=== PATIENT | male | born 1945 | race Caucasian/White ===

== ENCOUNTER 2017-02-07 12:04 | Inpatient (IN) | payer OTHER ==
[2017-02-06 16:30] VITALS: BMI 22.0
[2017-02-07 13:40] LABS: INR 1.45 (0.82-1.09); PROTHROMBIN TIME (PATIENT) 16.1 SEC (10.2-13.0)
[2017-02-07] MEDS ORDERED: MIDAZOLAM HCL 2 MG/2 ML SINGLE DOSE VIAL ONE (13:55)
[2017-02-07] MEDS ORDERED: LIDOCAINE HCL 1%, 10 MG/ML (20ML VIAL) ONE (14:16)
[2017-02-07] MEDS ORDERED: BUPIVACAINE HCL/PF 0.5% (5MG/ML) 10 ML VIAL ONE (14:16)
[2017-02-07] MEDS ORDERED: BUPIVACAINE HCL/PF 0.5% (5MG/ML) 10 ML VIAL IJ ONE (14:34)
[2017-02-07] MEDS ORDERED: LIDOCAINE HCL 1%, 10 MG/ML (50 mL VIAL) IJ ONE (14:34)
[2017-02-07] MEDS ORDERED: ONDANSETRON 4 MG/2 ML VIAL IVPUSH PRN ×2 (15:18→15:55)
[2017-02-07] MEDS ORDERED: ALBUTEROL SO4 6.7 GM HFA INHALER IH PRN (15:49)
[2017-02-07] MEDS ORDERED: HYDROmorphone HCL CARPU-JECT 1 MG/1 ML DISP.SYRIN IVPB PRN (15:52)
[2017-02-07] MEDS ORDERED: NITROGLYCERIN SUBLINGUAL 1/150 0.4 MG TAB SL PRN (16:00)
[2017-02-07] MEDS ORDERED: ONDANSETRON 4 MG/2 ML VIAL IVPB PRN (16:03)
--- NOTE | 2017-02-07 16:06 | HP ---
History & Physical Update - History History: No Change - Physical Physical: No Change - Assessment Assessment: No Change - Plan Plan: No Change
--- NOTE | 2017-02-07 16:43 | OP ---
DATE OF OPERATION: 02/07/2017 PREOPERATIVE DIAGNOSIS: Infected left femoropopliteal bypass graft. POSTOPERATIVE DIAGNOSIS: Infected left femoropopliteal bypass graft. OPERATIVE PROCEDURE: Excision of the femoropopliteal bypass graft and repair of the graft at the anastomosis. SURGEON: Emely Eid MD HAND PASTER: Ashwini ANESTHESIA: Local sedation. INDICATION FOR PROCEDURE: Patient has had a few vascular procedures done. One of them included a femoropopliteal bypass to below the knee, which had not been functioning. Now, patient has a functioning femoral distal reverse saphenous vein bypass and recently developed cellulitis of the left leg, left thigh, and had a pustule in the left groin. So, even with antibiotics, it was not responding; so, the patient was brought to the operating room. DESCRIPTION OF PROCEDURE: The patient's left leg was prepped and draped and intravenous vancomycin was given and local with Marcaine was injected in the left groin right over the pustule, and incision was taken down to the subcutaneous and deep tissue. The graft was isolated. Obviously, it was infected with slimy material around the graft. It was dissected all the way to the anastomosis, and a small sleeve of graft was left behind and sutured with 5-0 Prolene proximally. Then, the second incision was made at the knee level, and obviously, the graft was not incorporated into the tissue and easily came out. The whole graft was excised, and below the knee, the graft was again tied off with 5-0 Prolene. After irrigating the wound, the subcutaneous tissue and skin were closed, and the wound was packed with Iodoform gauze. The patient went to the recovery room in stable condition. Carson [id number]
[2017-02-07] MEDS: SODIUM CHLORIDE 1,000 ML IV SCH (17:26)
[2017-02-07] MEDS: LACTATED RINGERS SOLUTION 1,000 ML IV SCH (17:26)
[2017-02-07] MEDS: WARFARIN NA 7.5 MG TABLET (FP) PO SCH (17:27)
[2017-02-07] MEDS: ATORVASTATIN CA 40 MG TABLET (FP) PO SCH (21:42)
[2017-02-07] MEDS: ASPIRIN COATED 81 MG TABLET.EC PO SCH (21:42)
[2017-02-07] MEDS: ACLIDINIUM BROMIDE 400 MCG/INH AERO.POWD IH SCH (21:43)
[2017-02-07] MEDS: oxyCODONE HCL 5 MG TABLET PO PRN (21:47)
[2017-02-07] MEDS ORDERED: VANCOMYCIN 1,000 MG in DEXTROSE 5%-WATER - 250 ML IVPB SCH (22:00)
[2017-02-07] MEDS ORDERED: VANCOMYCIN 1 GRAM (PRE-DOCKED) 1,000 MG/250 ML BAG IVPB ONE (22:00)
[2017-02-08 08:12] LABS: MEAN CELL VOLUME 90.7 fl (80-96); MEAN PLT VOLUME 8.1 fl (7.5-11.1); PLATELET COUNT 304 K/MM3 (134-434); WHITE BLOOD COUNT 14.8 K/mm3 (4.0-10.8)
--- NOTE | 2017-02-08 08:22 | OP ---
Operative Note - Note: Operative Date: 02/07/17 Pre-Operative Diagnosis: Infected left leg femoral-popliteal bypass Operation: Excision of left leg infected fem-pop bypass Post-Operative Diagnosis: Same as Pre-op Surgeon: Emely Eid Spinneret Person: Ashwini Babin Anesthesia: MAC Specimens Removed: bypass graft Estimated Blood Loss (mls): 30 Drains & Tubes with Location: none Operative Report Dictated: Yes
[2017-02-08 08:23] LABS: INR 1.37 (0.82-1.09); PROTHROMBIN TIME (PATIENT) 15.2 SEC (10.2-13.0)
[2017-02-08 08:29] LABS: ANION GAP 5 (8-16); CALCIUM 8.8 mg/dl (8.4-10.2); CO2 30 mmol/L (22-28); CREATININE 0.8 mg/dl (0.6-1.3); GLUCOSE,RANDOM 102 mg/dl (74-106)
[2017-02-08] MEDS ORDERED: PT OWN MED DRAWER 7, Y5N ONE ×2 (09:51→22:00)
--- NOTE | 2017-02-08 10:08 | PN ---
Progress Note (short form) - Note Progress Note: S: Pt. without complaints. Ambulating with walker O: VAS 3/10 A/P: POD #1 s/p excision of left fem/pop graft 1. continue pain meds as ordered
[2017-02-08] MEDS: ACLIDINIUM BROMIDE 400 MCG/INH AERO.POWD IH SCH ×2 (10:11→22:02)
[2017-02-08] MEDS: ACETAMINOPHEN 325 MG TABLET (FP) PO PRN (10:12)
--- NOTE | 2017-02-08 10:34 | PN ---
Progress Note (short form) - Note Progress Note: ID Consult dictated POD #1 excision, infected L LE vascular graft Possible sepsis secondary to graft infection Pending c/s empiric vancomycin / zosyn
[2017-02-08] MEDS: VANCOMYCIN 1 GRAM (PRE-DOCKED) 250 ML IVPB SCH ×2 (10:53→23:08)
[2017-02-08] MEDS: PIPERACILLIN/TAZOB 3.375 GM 50 ML IVPB SCH ×2 (10:53→18:03)
--- NOTE | 2017-02-08 11:02 | CONS ---
DATE OF CONSULTATION: HISTORY: The patient is a 71-year-old male evaluated for infected left femoropopliteal bypass graft. The patient has a long history of peripheral vascular disease. He has had numbers bypass procedures on his left lower extremity dating back 8 years. In December of this year, he developed acute onset of left knee pain and swelling. He was hospitalized at [facility] for cellulitis of the left lower extremity. He was treated with course of IV antibiotics and was discharged home. He reports that he developed persistent oozing from a left groin wound for which he received 3 or 4 weeks of oral antibiotic therapy. Despite the oral antibiotics, he continued to have drainage and swelling. He was admitted to [facility] on February 07, 2017 where excision of an infected left femoral popliteal graft was performed. At the present time, he is awake and alert. He has no complaints of pain. He denies any fever or chills. The patient states he had been doing well since his last vascular surgery. He had undergone a revision, which was complicated postoperatively by infection at the site. I contacted [place] [facility], and they report wound cultures obtained in December were negative. PAST MEDICAL HISTORY: Positive for coronary artery disease, atrial fibrillation, sick sinus syndrome, peripheral vascular disease, hypercoagulable state, recurrent DVTs, hyperlipidemia, COPD. PAST SURGICAL HISTORY: Status post permanent pacemaker, left lower extremity vascular surgeries, appendectomy, pilonidal cyst excision. ALLERGIES: No known allergies. MEDICATIONS: Coumadin, Spiriva, Cardia, Lipitor. SOCIAL HISTORY: Former smoker. SYSTEMS REVIEW: Neurologic: No loss of consciousness, seizure activity, focal weakness. Cardiac: Negative chest pain or palpitations. Respiratory: Positive for COPD. Gastrointestinal: Negative vomiting or diarrhea. Genitourinary: Negative for urinary tract infection. LABORATORY DATA: White count 14.8, hematocrit 43.4, platelet count 304, BUN 12, creatinine 0.8. PHYSICAL EXAMINATION: General: He is awake and alert. He is not acutely toxic appearing. Vital Signs: Temperature 99.6, blood pressure 121/53, pulse 88, irregular respirations 20 per minute. HEENT: Sclerae anicteric. Heart: Sounds irregular S1, S2. No murmur. Lungs: Clear. Abdomen: Soft. No tenderness elicited. No mass, rebound, or rigidity. Extremities: Left lower extremity: There is edema of the left lower extremity. There is a surgical wound present in the left groin with a drain in place. No purulent drainage is noted. A second surgical wound is present distally at the medial aspect of the distal left thigh. The wound is intact. No purulent drainage is noted. IMPRESSION: 1. Postoperative day number 1, excision of left femoropopliteal bypass graft. 2. Possible sepsis secondary to infected graft. PLAN: Pending operative cultures and blood cultures, empiric antibiotic coverage with vancomycin and Zosyn. Thank you for the kind referral. JENIFER CHINO M.D. [id number]
--- NOTE | 2017-02-08 15:17 | PN ---
Progress Note (short form) - Note Progress Note: Doing well. No complaints. Pain well controlled. Denies fever, chills, SOB, CP, dizziness, abd pain, N/V. General: calm and cooperative, NAD. Lungs: CTA b/l Heart: RRR Abdomen: soft, non-tender Lower ext: Lt: Incisions c/d/i with sutures, packing in place, mild serosanguinous drainage, no hematoma, 2+ PT pulse. Dx: Infected thrombosed left leg fem-pop bypass One day s/p left leg thrombosed infected fem-pop bypass resection Dressings changed. Iodoform packing left in place. Leukocytosis this morning of 14.8. (+) low grade temp. On Vancomycin. ID consulted and added Zosyn. Awaiting bypass culture c/s. Spirometry. OOB w/ cane. Pain management. Continue all home meds. Venodyne right leg.
[2017-02-08] MEDS: LACTATED RINGERS SOLUTION 1,000 ML IV SCH (16:45)
[2017-02-08] MEDS: SODIUM CHLORIDE 1,000 ML IV SCH (16:45)
[2017-02-08] MEDS: WARFARIN NA 7.5 MG TABLET (FP) PO SCH (18:03)
[2017-02-08] MEDS: DOCUSATE SODIUM 100 MG CAPSULE (FP) PO SCH (22:01)
[2017-02-08] MEDS: ASPIRIN COATED 81 MG TABLET.EC PO SCH (22:02)
[2017-02-08] MEDS: ATORVASTATIN CA 40 MG TABLET (FP) PO SCH (22:02)
[2017-02-08] MEDS: oxyCODONE HCL 5 MG TABLET PO PRN (22:57)
[2017-02-09] MEDS: PIPERACILLIN/TAZOB 3.375 GM 50 ML IVPB SCH ×3 (01:38→17:55)
[2017-02-09 07:41] LABS: MCH 30.1 pg (25.7-33.7); MCHC 33.3 g/dl (32.0-35.9); MEAN CELL VOLUME 90.4 fl (80-96); MEAN PLT VOLUME 8.3 fl (7.5-11.1); PLATELET COUNT 291 K/MM3 (134-434); RDW 14.8 % (11.9-15.9)
[2017-02-09 07:43] LABS: INR 1.62 (0.82-1.09)
[2017-02-09 08:08] LABS: ANION GAP 5 (8-16); CALCIUM 8.5 mg/dl (8.4-10.2); CO2 27 mmol/L (22-28); CREATININE 0.9 mg/dl (0.6-1.3); GLUCOSE,RANDOM 116 mg/dl (74-106)
--- NOTE | 2017-02-09 08:15 | PN ---
Progress Note, Physician History of Present Illness: Seated in bed eating breakfast C/O soreness L medial thigh No fever/ chills Afebrile WBC slightly elevated Cultures pending - Current Medication List Current Medications: Active Medications Acetaminophen (Tylenol -) 650 mg PO Q6H PRN PRN Reason: FEVER OR PAIN Last Admin: 02/08/17 10:12 Dose: 650 mg Aclidinium [place] (Tudorza -) 1 puff IH BID [facility] Last Admin: 02/08/17 22:02 Dose: 1 puff Albuterol Sulfate (Ventolin Hfa Inhaler -) 2 puff IH Q4H PRN PRN Reason: SHORTNESS OF BREATH Aspirin (Ecotrin -) 81 mg PO [facility] Last Admin: 02/08/17 22:02 Dose: 81 mg Atorvastatin Calcium (Lipitor -) 40 mg PO [facility] Last Admin: 02/08/17 22:02 Dose: 40 mg Diltiazem HCl (Cardizem Cd -) 300 mg PO [facility] Last Admin: 02/08/17 22:02 Dose: 300 mg Docusate Sodium (Colace -) 100 mg PO BID [facility] Last Admin: 02/08/17 22:01 Dose: 100 mg Fentanyl (Sublimaze Injection -) 25 mcg IVPUSH [id number] PRN PRN Reason: PAIN Stop: 02/10/17 15:19 Fentanyl (Sublimaze Injection -) 25 mcg IVPUSH [id number] PRN PRN Reason: PAIN Stop: 02/10/17 15:56 Hydromorphone HCl (Dilaudid Injection -) 1 mg IVPB Q6H PRN PRN Reason: PAIN Last Admin: 02/08/17 03:24 Dose: 1 mg Vancomycin HCl (Vancomycin (Pre-Docked)) 250 mls @ 166.667 mls/hr IVPB Q12H [facility] Last Admin: 02/08/17 23:08 Dose: 166.667 mls/hr Piperacillin Sod/Tazobactam Sod (Zosyn 3.375gm Ivpb (Pre-Docked)) 50 mls @ 100 mls/hr IVPB Q8H-IV ANTOINETTE PRN Reason: Protocol Last Admin: 02/09/17 01:38 Dose: 100 mls/hr Nitroglycerin (Nitrostat -) 0.4 mg SL PRN PRN Ondansetron HCl (Zofran Injection) 4 mg IVPB Q6H PRN PRN Reason: NAUSEA Oxycodone HCl (Roxicodone -) 5 mg PO Q4H PRN PRN Reason: MILD PAIN Last Admin: 02/08/17 22:57 Dose: 5 mg Oxycodone/Acetaminophen (Percocet 5/325 -) 1 combo PO Q4H PRN PRN Reason: PAIN LEVEL 1-5 Last Admin: 02/08/17 16:50 Dose: 1 combo Warfarin Sodium (Coumadin -) 7.5 mg PO DAILY@1800 ANTOINETTE Last Admin: 02/08/17 18:03 Dose: 7.5 mg - Objective Vital Signs: Vital Signs Temperature 98.7 F 02/09/17 06:41 Pulse Rate 69 02/09/17 06:41 Respiratory Rate 20 02/09/17 06:41 Blood Pressure 106/48 02/09/17 06:41 O2 Sat by Pulse Oximetry (%) 95 02/09/17 06:41 Constitutional: Yes: No Distress Eyes: Yes: Conjunctiva Clear Cardiovascular: Yes: Regular Rate and Rhythm, S1, S2 Respiratory: Yes: CTA Bilaterally Gastrointestinal: Yes: Normal Bowel Sounds, Soft. No: Tenderness Extremities: Yes: Other (+ swelling/ warmth L thigh + erythema, medial thigh extending to groin no drainage from surgical wounds) Labs: CBC, BMP 02/09/17 07:25 INR, PTT INR 1.62 (0.82-1.09) H 02/09/17 07:25 Assessment/Plan POD #2 excision of infected L LE vascular graft Await operative cultures Continue empiric vancomycin/ zosyn
[2017-02-09] MEDS: ACETAMINOPHEN 325 MG TABLET (FP) PO PRN (08:32)
[2017-02-09] MEDS: VANCOMYCIN 1 GRAM (PRE-DOCKED) 250 ML IVPB SCH ×2 (10:00→23:06)
[2017-02-09] MEDS: ACLIDINIUM BROMIDE 400 MCG/INH AERO.POWD IH SCH ×2 (10:18→21:32)
[2017-02-09] MEDS: DOCUSATE SODIUM 100 MG CAPSULE (FP) PO SCH ×2 (10:18→21:32)
[2017-02-09 10:45] LABS: PLATELET ESTIMATE ADEQUATE (NORMAL)
[2017-02-09] MEDS: WARFARIN NA 7.5 MG TABLET (FP) PO SCH (17:55)
[2017-02-09] MEDS ORDERED: PT OWN MED DRAWER 7, Y5N ONE (21:29)
[2017-02-09] MEDS: ASPIRIN COATED 81 MG TABLET.EC PO SCH (21:32)
[2017-02-09] MEDS: ATORVASTATIN CA 40 MG TABLET (FP) PO SCH (21:32)
[2017-02-10] MEDS: PIPERACILLIN/TAZOB 3.375 GM 50 ML IVPB SCH ×3 (01:38→17:28)
[2017-02-10] MEDS: ACLIDINIUM BROMIDE 400 MCG/INH AERO.POWD IH SCH ×2 (09:54→21:25)
[2017-02-10] MEDS: DOCUSATE SODIUM 100 MG CAPSULE (FP) PO SCH ×2 (09:54→21:24)
[2017-02-10] MEDS: VANCOMYCIN 1 GRAM (PRE-DOCKED) 250 ML IVPB SCH ×2 (11:15→23:44)
[2017-02-10] MEDS: WARFARIN NA 7.5 MG TABLET (FP) PO SCH (17:28)
[2017-02-10] MEDS ORDERED: PT OWN MED DRAWER 7, Y5N ONE (21:22)
[2017-02-10] MEDS: ASPIRIN COATED 81 MG TABLET.EC PO SCH (21:24)
[2017-02-10] MEDS: ATORVASTATIN CA 40 MG TABLET (FP) PO SCH (21:24)
[2017-02-11] MEDS: PIPERACILLIN/TAZOB 3.375 GM 50 ML IVPB SCH ×2 (01:55→09:53)
[2017-02-11 08:25] LABS: INR 2.35 (0.82-1.09); PROTHROMBIN TIME (PATIENT) 25.9 SEC (10.2-13.0)
[2017-02-11 08:41] LABS: MCH 30.1 pg (25.7-33.7); MCHC 33.1 g/dl (32.0-35.9); MEAN CELL VOLUME 90.8 fl (80-96); MEAN PLT VOLUME 8.2 fl (7.5-11.1); PLATELET COUNT 295 K/MM3 (134-434); RDW 15.2 % (11.9-15.9); WHITE BLOOD COUNT 7.9 K/mm3 (4.0-10.8)
[2017-02-11 09:02] LABS: ANION GAP 5 (8-16); CALCIUM 8.5 mg/dl (8.4-10.2); CO2 27 mmol/L (22-28); CREATININE 0.8 mg/dl (0.6-1.3); GLUCOSE,RANDOM 106 mg/dl (74-106)
[2017-02-11] MEDS ORDERED: PT OWN MED DRAWER 7, Y5N ONE (09:46)
[2017-02-11] MEDS: DOCUSATE SODIUM 100 MG CAPSULE (FP) PO SCH (09:52)
[2017-02-11] MEDS: ACLIDINIUM BROMIDE 400 MCG/INH AERO.POWD IH SCH (09:53)
--- NOTE | 2017-02-11 10:05 | PN ---
Progress Note, Physician History of Present Illness: Awake, alert No complaints of leg pain No fever/ chills Afebrile WBC WNL Cultures negative - Current Medication List Current Medications: Active Medications Acetaminophen (Tylenol -) 650 mg PO Q6H PRN PRN Reason: FEVER OR PAIN Last Admin: 02/09/17 08:32 Dose: 650 mg Aclidinium [place] (Tudorza -) 1 puff IH BID [facility] Last Admin: 02/11/17 09:53 Dose: 1 puff Albuterol Sulfate (Ventolin Hfa Inhaler -) 2 puff IH Q4H PRN PRN Reason: SHORTNESS OF BREATH Aspirin (Ecotrin -) 81 mg PO [facility] Last Admin: 02/10/17 21:24 Dose: 81 mg Atorvastatin Calcium (Lipitor -) 40 mg PO [facility] Last Admin: 02/10/17 21:24 Dose: 40 mg Diltiazem HCl (Cardizem Cd -) 300 mg PO [facility] Last Admin: 02/10/17 21:57 Dose: 300 mg Docusate Sodium (Colace -) 100 mg PO BID [facility] Last Admin: 02/11/17 09:52 Dose: Not Given Hydromorphone HCl (Dilaudid Injection -) 1 mg IVPB Q6H PRN PRN Reason: PAIN Last Admin: 02/08/17 03:24 Dose: 1 mg Vancomycin HCl (Vancomycin (Pre-Docked)) 250 mls @ 166.667 mls/hr IVPB Q12H [facility] Last Admin: 02/10/17 23:44 Dose: 166.667 mls/hr Piperacillin Sod/Tazobactam Sod (Zosyn 3.375gm Ivpb (Pre-Docked)) 50 mls @ 100 mls/hr IVPB Q8H-IV ANTOINETTE PRN Reason: Protocol Last Admin: 02/11/17 09:53 Dose: 100 mls/hr Nitroglycerin (Nitrostat -) 0.4 mg SL PRN PRN Ondansetron HCl (Zofran Injection) 4 mg IVPB Q6H PRN PRN Reason: NAUSEA Oxycodone HCl (Roxicodone -) 5 mg PO Q4H PRN PRN Reason: MILD PAIN Last Admin: 02/08/17 22:57 Dose: 5 mg Oxycodone/Acetaminophen (Percocet 5/325 -) 1 combo PO Q4H PRN PRN Reason: PAIN LEVEL 1-5 Last Admin: 02/10/17 21:24 Dose: 1 combo Warfarin Sodium (Coumadin -) 7.5 mg PO DAILY@1800 ANTOINETTE Last Admin: 02/10/17 17:28 Dose: 7.5 mg - Objective Vital Signs: Vital Signs Temperature 98.3 F 02/11/17 06:42 Pulse Rate 77 02/11/17 06:42 Respiratory Rate 17 02/11/17 06:42 Blood Pressure 140/55 02/11/17 06:42 O2 Sat by Pulse Oximetry (%) 95 02/11/17 08:33 Constitutional: Yes: No Distress Eyes: Yes: Conjunctiva Clear Cardiovascular: Yes: Regular Rate and Rhythm, S1, S2 Respiratory: Yes: CTA Bilaterally Gastrointestinal: Yes: Soft, Tenderness Extremities: Yes: Other (Surgical wounds L thigh intact no erythema/ drainage. Erythema/ swelling/ induration resolved) Labs: CBC, BMP 02/11/17 07:30 02/11/17 07:30 INR, PTT INR 2.35 (0.82-1.09) H D 02/11/17 07:30 Assessment/Plan POD #4 excision of infected L LE vascular graft cultures negative May substitute Augmentin 875mg po bid x7d Outpatient surgical follow up
[2017-02-11] MEDS: VANCOMYCIN 1 GRAM (PRE-DOCKED) 250 ML IVPB SCH (12:14)
[2017-02-11 13:18] VITALS: BP 123/58; PULSE 86; TEMP 99
--- NOTE | 2017-02-13 12:47 | PATH ---
Surgical Pathology Report Patient Name: TERE GRIJALVA Med. Rec. #: [id number] /Age/Gender: 1945 (Age: 71) / M Account: [id number] Location: [facility] Taken: 02/07/2017 Received: 02/07/2017 Reported: 02/13/2017 Physicians: Emely Eid M.D. 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 Electronically Signed Loco Huertas M.D. Gross Description Received fresh labeled "infected graft of left leg," is a 34 cm in length portion of graft material. No soft tissue is present. No sections are submitted, gross only. 02/08/2017 [place]02/08/2017
== END 2017-02-11 15:17 | disposition home or self-care (01) | DRG 264 ==
LOC: FASU 12:04 → EDSTATUS 13:30 → FM/S 15:46 → FASU 17:28 → UNDOADMIN 02-08 12:33 → FM/S 02-08 12:33
PROVIDERS: ADMIT Surgery Vascular Surgery; ATTEND Surgery Vascular Surgery
PROC: 0JBP0ZZ Excision of Left Lower Leg Subcutaneous Tissue and Fascia, Open Approach (ICD-10-PCS; 2017-02-07)
PROC: 0YW Anatomical Regions, Lower Extremities, Revision (ICD-10-PCS; 2017-02-07)
PROC: 0JX Subcutaneous Tissue and Fascia, Transfer (ICD-10-PCS; principal; 2017-02-07 14:35)
DX: T82.7XXA Infection and inflammatory reaction due to other cardiac and vascular devices, implants and grafts, initial encounter (principal); Y83.9 Surgical procedure, unspecified as the cause of abnormal reaction of the patient, or of later complication, without mention of misadventure at the time of the procedure; I25.10 Atherosclerotic heart disease of native coronary artery without angina pectoris; E78.5 Hyperlipidemia, unspecified; J44.9 Chronic obstructive pulmonary disease, unspecified; Z87.891 Personal history of nicotine dependence
CPT/HCPCS: 36415; 80048; 85025; 85027; 85610; 87040; 87070; 87205; 88300-TC; 94760; G0480

== ENCOUNTER 2017-06-04 09:39 | Day surgery (SDC) | payer OTHER ==
[2017-05-31 11:09] VITALS: BMI 22.8
[2017-06-04] MEDS ORDERED: BUPIVACAINE HCL/PF 0.5% (5MG/ML) 10 ML VIAL ONE (11:27)
[2017-06-04] MEDS ORDERED: LIDOCAINE HCL 1%, 10 MG/ML (20ML VIAL) ONE (11:27)
[2017-06-04] MEDS ORDERED: MIDAZOLAM HCL 2 MG/2 ML SINGLE DOSE VIAL ONE (12:09)
[2017-06-04] MEDS ORDERED: PROPOFOL 20 ML ONE ×2 (12:22)
[2017-06-04] MEDS ORDERED: GUM MASTIC/STORAX/MSAL/ALCOHOL 1 DRP DROPSBTL MC ONE (12:54)
[2017-06-04] MEDS ORDERED: DEXAMETHASONE SOD PHOSPHATE 4 MG/1 ML VIAL ONE (12:59)
[2017-06-04] MEDS ORDERED: ceFAZolin SODIUM 1 GM VIAL ONE (12:59)
[2017-06-04] MEDS ORDERED: ONDANSETRON 4 MG/2 ML VIAL ONE (12:59)
--- NOTE | 2017-06-04 13:44 | OP ---
DATE OF OPERATION: 06/04/2017 PREOPERATIVE DIAGNOSIS: End of battery permanent pacemaker, [employer]. POSTOPERATIVE DIAGNOSIS: End of battery permanent pacemaker, [employer]. PROCEDURE: Change of the dual chamber permanent pacemaker. SURGEON: Emely Eid MD ANESTHESIA: Local, sedation. DESCRIPTION OF PROCEDURE: Intravenous antibiotic was given. Left anterior chest wall is prepped and draped. Local with Marcaine was injected and the incision was made to open the pocket. The pacemaker was removed. It was tested earlier. The new pacemaker, serial number [id number], [employer], was then affixed to the 2 leads, put back into the pocket. Skin was closed and patient went to the recovery room in stable condition. EMELY EID M.D. /[id number]
[2017-06-04 13:49] VITALS: PULSE 67
[2017-06-04 13:50] VITALS: BP 139/71; TEMP 98
--- NOTE | 2017-06-06 08:54 | PATH ---
Surgical Pathology Report Patient Name: TERE GRIJALVA Med. Rec. #: [id number] /Age/Gender: 1945 (Age: 72) / M Account: [id number] Location: [facility] Taken: 06/04/2017 Received: 06/05/2017 Reported: 06/06/2017 Physicians: Emely Eid M.D. 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 MACROSCOPIC DIAGNOSIS. Electronically Signed Minnie Roblero M.D. Gross Description Received fresh labeled "pacemaker battery," is a 5.0 x 4.3 x 0.6 cm butterfield metallic device, consistent with a pacemaker battery. The specimen has the following inscription: "[employer] [facility]. [address] 5386 DDDR S/N: [id number]. Made in [place]." No soft tissue is present. No sections are submitted, gross only. DL/06/05/2017 [place]udi06/05/2017
== END 2017-06-04 14:09 | disposition home or self-care (01) ==
LOC: FASU 09:39
PROVIDERS: ATTEND Surgery Vascular Surgery
PROC: 0JH606Z Insertion of Pacemaker, Dual Chamber into Chest Subcutaneous Tissue and Fascia, Open Approach (ICD-10-PCS; 2017-06-04)
PROC: 0JPT0PZ Removal of Cardiac Rhythm Related Device from Trunk Subcutaneous Tissue and Fascia, Open Approach (ICD-10-PCS; principal; 2017-06-04 12:45)
DX: Z45.010 Encounter for checking and testing of cardiac pacemaker pulse generator [battery] (principal)
CPT/HCPCS: 88300-TC

== ENCOUNTER 2019-07-17 14:49 | Inpatient (IN) | payer OTHER ==
[2019-07-17 15:00] VITALS: BMI 22.0
[2019-07-17] MEDS ORDERED: methylPREDNISolone NA SUCC 125 MG/2 ML VIAL IVPB ONE (15:24)
[2019-07-17] MEDS ORDERED: AZITHROMYCIN IVPB 500 MG in DEXTROSE 5%-WATER - 250 ML IVPB ONE (15:25)
--- NOTE | 2019-07-17 15:34 | PDOC ---
Documentation entered by Pricilla Jennings SCRIBE, acting as scribe for Brandi uDff MD. Brandi Duff MD: This documentation has been prepared by the Dick benoit Brenda, SCRIBE, under my direction and personally reviewed by me in its entirety. I confirm that the documentation accurately reflects all work, treatment, procedures, and medical decision making performed by me. History of Present Illness - General Chief Complaint: Respiratory Stated Complaint: COUGH History Source: Patient Exam Limitations: No Limitations - History of Present Illness Initial Comments: 07/17/19 15:29 The patient is a 74 year old male, with a significant PMH of Afib (pacemaker) and COPD who presents to the emergency department sent by PCP for approximately 5 days of progressively worsening cough, fever/chills and a sore throat. As per the patient, he began experiencing a sore throat on Saturday Evening (07/12/2019). He then states that on Saturday (07/14/2019), he developed a cough productive of brown phlegm that is now clear phlegm. He also notes a fever of 101 on Saturday (07/15/2019). Patients , on the bedside, noted that they wete with their grandson on Saturday (07/10/2019), who was diagnosed with the Flu on Saturday, the next day. The patient denies chest pain, headache and dizziness. Denies nausea, vomiting, diarrhea and constipation. Denies dysuria, frequency, urgency and hematuria. Allergies: NKA Past surgical history: Pacemaker Past History - Past Medical History Allergies/Adverse Reactions: Allergies Allergy/AdvReac Type Severity Reaction Status Date / Time No Known Allergies Allergy Verified 07/17/19 14:55 Home Medications: Ambulatory Orders Albuterol Sulfate Inhaler - [Ventolin HFA Inhaler -] 1 puff IH PRN PRN 02/06/17 Aspirin [Aspirin EC] 81 mg PO HS 02/06/17 Atorvastatin Ca [Lipitor] 40 mg PO HS 02/06/17 Diltiazem HCl [Cartia Xt] 300 mg PO HS 02/06/17 Warfarin Sodium [Coumadin] 7.5 mg PO HS 02/06/17 Nitroglycerin [place] [Nitrolingual] 1 spray TL DAILY PRN 07/17/19 Anemia: No Asthma: No Cancer: No Cardiac Disorders: Yes (ATRIAL FIBRILLATION PT HAS A PACEMAKER) CVA: No COPD: Yes CHF: No Dementia: No Diabetes: No GI Disorders: No Disorders: No HTN: No Hypercholesterolemia: No Liver Disease: No Seizures: No Thyroid Disease: No - Surgical History Abdominal Surgery: No Appendectomy: Yes (OPEN) Cardiac Surgery: No Cholecystectomy: No Lung Surgery: No Neurologic Surgery: No Orthopedic Surgery: No - Psycho Social/Smoking Cessation Hx Smoking History: Former smoker Have you smoked in the past 12 months: No Number of Cigarettes Smoked Daily: 40 If you are a former smoker, when did you quit?: 2008 Hx Alcohol Use: No Drug/Substance Use Hx: No Substance Use Type: None Hx Substance Use Treatment: No Review of Systems - Review of Systems Able to Perform ROS?: Yes Comments:: 07/17/19 15:30 GENERAL/CONSTITUTIONAL: (+) Fever (+) Chills No weakness. HEAD, EYES, EARS, NOSE AND THROAT: (+) Sore throat. No change in vision. No ear pain or discharge. CARDIOVASCULAR: No chest pain or shortness of breath. RESPIRATORY: (+) Cough. No wheezing, or hemoptysis. GASTROINTESTINAL: No nausea, vomiting, diarrhea or constipation. GENITOURINARY: No dysuria, frequency, or change in urination. MUSCULOSKELETAL: No joint or muscle swelling or pain. No neck or back pain. SKIN: No rash NEUROLOGIC: No headache, vertigo, loss of consciousness, or change in strength/ sensation. ENDOCRINE: No increased thirst. No abnormal weight change. HEMATOLOGIC/LYMPHATIC: No anemia, easy bleeding, or history of blood clots. ALLERGIC/IMMUNOLOGIC: No hives or skin allergy. *Physical Exam - Vital Signs Last Vital Signs Temp Pulse Resp BP Pulse Ox 97.7 F 73 20 118/68 90 L 07/17/19 14:50 07/17/19 14:50 07/17/19 14:50 07/17/19 14:50 07/17/19 14:50 - Physical Exam GENERAL: Awake, alert, and fully oriented, in no acute distress HEAD: No signs of trauma EYES: PERRLA, EOMI, sclera anicteric, conjunctiva clear ENT: Auricles normal inspection, hearing grossly normal, nares patent, oropharynx clear without exudates. Moist mucosa NECK: Normal ROM, supple, no lymphadenopathy, JVD, or masses LUNGS: Dec air entry B/L with scattered exp wheezes (faint). +Loose hacking cough HEART: Regular rate and rhythm, normal S1 and S2, no murmurs, rubs or gallops ABDOMEN: Soft, nontender, normoactive bowel sounds. No guarding, no rebound. No masses EXTREMITIES: Normal range of motion, no edema. No clubbing or cyanosis. No cords, erythema, or tenderness NEUROLOGICAL: Cranial nerves II through XII grossly intact. Normal speech, normal gait. Motor and sensation intact SKIN: Warm, dry, normal turgor, no rashes or lesions noted. Heart Score/ECG Review - ECG Impressions Comment:: EKG read 16:17- NSR 92 bpm, no acute ST/T changes ED Treatment Course - LABORATORY CBC & Chemistry Diagram: 07/17/19 15:30 07/17/19 15:30 Medical Decision Making - Medical Decision Making 07/17/19 15:22 Pt desats with minimal exertion (and with speaking). Baseline O2Sat is 95% as per PMD Dr. Vieyra. Will obtain labs and CXR. Will give nebs, steroids, and abx for acute bronchitis, but r/o pna with CXR. Flu swab was neg at PMD office. Dispo will depend on if he improves significantly. If not, will admit. 07/17/19 18:09 Pt reports feeling better with treatments. HOwever, he desats to 80s off O2. Will plan for admission for COPD exacerbation/acute bronchitis. Discharge - Discharge Information Problems reviewed: Yes Clinical Impression/Diagnosis: COPD exacerbation Acute bronchitis Qualifiers: Bronchitis organism: unspecified organism Qualified Code(s): J20.9 - Acute bronchitis, unspecified Condition: Stable - Admission Yes - Follow up/Referral Referrals: Larissa Vieyra [Primary Care Provider] - - Patient Discharge Instructions - Post Discharge Activity
[2019-07-17] MEDS ORDERED: AZITHROMYCIN 500 MG VIAL IVPB ONE (15:41)
[2019-07-17] MEDS ORDERED: ALBUTEROL SO4 2.5/IPRATROPIUM 0.5 INH SOL 3 ML VIAL.NEB. NEB ONE ×3 (15:41→20:36)
[2019-07-17] MEDS ORDERED: methylPREDNISolone NA SUCC 125 MG/2 ML VIAL ONE (15:41)
[2019-07-17] MEDS: ALBUTEROL SO4 2.5/IPRATROPIUM 0.5 INH SOL 3 ML VIAL.NEB. NEB SCH ×5 (15:45→20:41)
[2019-07-17 15:55] LABS: BASO % 0.7 % (0-2.0); EOS % 3.3 % (0-4.5); HEMATOCRIT 43.6 % (35.4-49); HEMOGLOBIN 14.2 GM/dl (11.7-16.9); LYMPH % 12.4 % (8-40); MCH 30.3 pg (25.7-33.7); MCHC 32.5 g/dl (32.0-35.9); MEAN CELL VOLUME 93.1 fl (80-96); MONO % 14.6 % (3.8-10.2); PLATELET COUNT 170 K/MM3 (134-434); RBC 4.69 M/mm3 (4.00-5.60); RDW 14.7 % (11.9-15.9); WHITE BLOOD COUNT 8.3 K/mm3 (4.0-10.8)
[2019-07-17 16:09] LABS: ALBUMIN 3.7 g/dl (3.4-5.0); BILIRUBIN,TOTAL 0.5 mg/dl (0.2-1); CALCIUM 8.6 mg/dl (8.5-10); CREATININE 0.9 mg/dl (0.55-1.3); POTASSIUM 3.9 mmol/L (3.5-5.1); TOT PROT 6.7 g/dl (6.4-8.2)
--- NOTE | 2019-07-17 19:42 | HP ---
Admitting History and Physical - Primary Care Physician PCP: Larissa Vieyra - Admission Chief Complaint: SOB, Cough, Flu Like Symptoms History of Present Illness: This is a 74 y/o male with a PMHx of COPD, HTN, Afib (on Coumadin), s/p PPM. Who presents to the ED with increased SOB, BLACK, productive cough, fever, chest congestion, throat pain x5 days. Patient reports having "flu like symptoms" recent exposure to Influenza- grandson. Patient reports having a productive cough with brown thick phlegm. Patient reports increased work of breathing just walking from the bedroom to the bathroom. He reports chest tightness, worse with cough. Patient reports having subjective fevers at home- now resolved. Patient denies STUART, dizziness, palpitations, AP, N/V/D, constipation, dysuria. Patient tested for Influenza, at PMDs office- negative. History Source: Patient, Family Member Limitations to Obtaining History: No Limitations - Past Medical History Cardiovascular: Yes: AFIB, HTN, Hyperlipdemia Pulmonary: Yes: COPD - Past Surgical History Past Surgical History: Yes: Permanent Pacemaker - Smoking History Smoking history: Former smoker Have you smoked in the past 12 months: No Aproximately how many cigarettes per day: 40 If you are a former smoker, when did you quit?: 2008 - Alcohol/Substance Use Hx Alcohol Use: No History of Substance Use: reports: None - Social History Usual Living Arrangement: Yes: With Spouse ADL: Independent History of Recent Travel: No Home Medications - Allergies Allergies/Adverse Reactions: Allergies Allergy/AdvReac Type Severity Reaction Status Date / Time No Known Allergies Allergy Verified 07/17/19 14:55 - Home Medications Home Medications: Ambulatory Orders Albuterol Sulfate Inhaler - [Ventolin HFA Inhaler -] 1 puff IH PRN PRN 02/06/17 Aspirin [Aspirin EC] 81 mg PO HS 02/06/17 Atorvastatin Ca [Lipitor] 40 mg PO HS 02/06/17 Diltiazem HCl [Cartia Xt] 300 mg PO HS 02/06/17 Warfarin Sodium [Coumadin] 7.5 mg PO HS 02/06/17 Nitroglycerin [place] [Nitrolingual] 1 spray TL DAILY PRN 07/17/19 Family Medical History Family History: Unable to Obtain Review of Systems - Review of Systems Constitutional: reports: Fever, Weakness Eyes: reports: No Symptoms HENT: reports: Nasal Congestion, Throat Pain Neck: reports: No Symptoms Cardiovascular: reports: Shortness of Breath, Other (chest tightness) Respiratory: reports: Cough, SOB, SOB on Exertion Gastrointestinal: reports: No Symptoms Genitourinary: reports: No Symptoms Breasts: reports: No Symptoms Reported Musculoskeletal: reports: No Symptoms Integumentary: reports: No Symptoms Neurological: reports: No Symptoms Endocrine: reports: No Symptoms Hematology/Lymphatic: reports: No Symptoms Psychiatric: reports: No Symptoms Pain Intensity: 4 Physical Examination Vital Signs: Vital Signs Temperature 97.6 F 07/17/19 18:31 Pulse Rate 79 07/17/19 18:31 Respiratory Rate 19 07/17/19 18:31 Blood Pressure 118/78 07/17/19 18:31 O2 Sat by Pulse Oximetry (%) 98 07/17/19 18:31 Constitutional: Yes: No Distress, Calm, Thin Eyes: Yes: WNL, Conjunctiva Clear, EOM Intact, PERRL HENT: Yes: WNL, Atraumatic, Normocephalic Neck: Yes: WNL, Supple, Trachea Midline Cardiovascular: Yes: Regular Rate and Rhythm, S1, S2 Respiratory: Yes: Diminished, On Nasal O2, Rhonchi, SOB on Exertion, Wheezes. No: Accessory Muscle Use Gastrointestinal: Yes: WNL, Normal Bowel Sounds, Soft Renal/: Yes: WNL Breast(s): Yes: WNL Musculoskeletal: Yes: WNL Extremities: Yes: WNL Edema: No Peripheral Pulses WNL: Yes Neurological: Yes: WNL, Alert, Oriented, Cran Nerves II-XII Intact ...Motor Strength: WNL Psychiatric: Yes: WNL, Alert, Oriented Labs: CBC, BMP 07/17/19 15:30 07/17/19 15:30 Imaging - Results Chest X-ray: Image Reviewed EKG: Image Reviewed Problem List - Problems (1) COPD exacerbation Assessment/Plan: Chest Xray- reviewed Sputum Culture Azithromycin initiated in ED, will continue Appreciate Pulm consult Continue Solumederol w/taper Duonebs O2 Monitor CBC, BMP Peak Flow Code(s): J44.1 - CHRONIC OBSTRUCTIVE PULMONARY DISEASE W (ACUTE) EXACERBATION (2) Acute bronchitis Assessment/Plan: Chest Xray- reviewed Continue Azithromycin Duonebs Code(s): J20.9 - ACUTE BRONCHITIS, UNSPECIFIED Qualifiers: Bronchitis organism: unspecified organism Qualified Code(s): J20.9 - Acute bronchitis, unspecified (3) A-fib Assessment/Plan: Stable [id number] EKG- reviewed Continue Cardizem INR ordered Series INRs (maintain 2.0-3.0) Code(s): I48.91 - UNSPECIFIED ATRIAL FIBRILLATION (4) HTN (hypertension) Assessment/Plan: stable Monitor BP Continue home meds Monitor renal function Code(s): I10 - ESSENTIAL (PRIMARY) HYPERTENSION (5) HLD (hyperlipidemia) Assessment/Plan: stable Continue Lipitor Monitor LFTs Code(s): E78.5 - HYPERLIPIDEMIA, UNSPECIFIED Assessment/Plan This is a 74 y/o male with a PMHx of COPD, HTN, Afib (on Coumadin), s/p PPM. Admitted for Acute COPD Exacerbation, Acute Bronchitis for further evaluation of their emergent condition. Plan: See Problem List FEN PO fluids as tolerated Replete lytes prn Low Na Diet DVT ppx OOB SCDs Continue Coumadin Code Status: Full Code Dispo: Requires Inpatient Care Visit type - Emergency Visit Emergency Visit: Yes ED Registration Date: 07/17/19 Care time: The patient presented to the Emergency Department on the above date and was hospitalized for further evaluation of their emergent condition. - New Patient This patient is new to me today: Yes Date on this admission: 07/17/19 - Critical Care Critical Care patient: No
[2019-07-17] MEDS ORDERED: WARFARIN NA 7.5 MG TABLET (FP) PO ONE (21:56)
[2019-07-17] MEDS: ATORVASTATIN CA 40 MG TABLET (FP) PO SCH (22:15)
[2019-07-17] MEDS: methylPREDNISolone NA SUCC 40 MG/1 ML VIAL IVPUSH SCH (22:15)
[2019-07-17] MEDS: ASPIRIN COATED 81 MG TABLET.EC PO SCH (22:15)
[2019-07-17] MEDS: DILTIAZEM CD 120 MG, DILTIAZEM CD 180 MG PO SCH (23:39)
[2019-07-18] MEDS: methylPREDNISolone NA SUCC 40 MG/1 ML VIAL IVPUSH SCH ×3 (02:43→21:38)
[2019-07-18] MEDS: ALBUTEROL SO4 2.5/IPRATROPIUM 0.5 INH SOL 3 ML VIAL.NEB. NEB SCH ×4 (08:10→19:48)
[2019-07-18 10:07] LABS: CALCIUM 8.8 mg/dl (8.5-10); CREATININE 0.7 mg/dl (0.55-1.3)
[2019-07-18] MEDS: AZITHROMYCIN IVPB 250 MG in DEXTROSE 5%-WATER - 250 ML IVPB SCH (10:10)
[2019-07-18 10:20] LABS: INR 2.82 (0.82-1.09); PROTHROMBIN TIME (PATIENT) 30.9 SEC (10.2-13.0)
[2019-07-18 11:56] LABS: BASO % 0.2 % (0-2.0); HEMATOCRIT 41.4 % (35.4-49); HEMOGLOBIN 13.9 GM/dL (11.7-16.9); LYMPH % 5.5 % (8-40); MCH 30.9 pg (25.7-33.7); MCHC 33.5 g/dl (32.0-35.9); MEAN CELL VOLUME 92.2 fl (80-96); MEAN PLT VOLUME 9.4 fl (7.5-11.1); MONO % 3.4 % (3.8-10.2); NEUT % 90.9 % (42.8-82.8); PLATELET COUNT 172 K/MM3 (134-434); RBC 4.49 M/mm3 (4.00-5.60); RDW 15.1 % (11.9-15.9); WHITE BLOOD COUNT 7.9 K/mm3 (4.0-10.0)
--- NOTE | 2019-07-18 13:16 | EKG ---
Test Reason : Blood Pressure : / mmHG Vent. Rate : 092 BPM Atrial Rate : 092 BPM P-R Int : 192 ms QRS Dur : 100 ms QT Int : 366 ms P-R-T Axes : 087 044 066 degrees QTc Int : 452 ms NORMAL SINUS RHYTHM NONSPECIFIC ST ABNORMALITY ABNORMAL ECG NO PREVIOUS ECGS AVAILABLE Confirmed by JENIFER JANE MD ([id number]) on 07/18/2019 1:16:06 PM Referred By: MD MONGE Confirmed By:JENIFER JANE MD
--- NOTE | 2019-07-18 13:58 | DS ---
Physical Exam: SUBJECTIVE: Patient seen and examined OBJECTIVE: Vital Signs Period Temp Pulse Resp BP Sys/Mane Pulse Ox Last 24 Hr 97.6 F-98.2 F 73-104 16-20 118-149/55-78 90-98 PHYSICAL EXAM GENERAL: The patient is awake, alert, and fully oriented, in no acute distress. HEAD: Normal with no signs of trauma. EYES: PERRL, extraocular movements intact, sclera anicteric, conjunctiva clear. ENT: Ears normal, nares patent, oropharynx clear without exudates, moist mucous membranes. NECK: Trachea midline, full range of motion, supple. LUNGS: Breath sounds equal, clear to auscultation bilaterally, no wheezes, no crackles, no accessory muscle use. HEART: Regular rate and rhythm, S1, S2 without murmur, rub or gallop. ABDOMEN: Soft, nontender, nondistended, normoactive bowel sounds, no guarding, no rebound, no hepatosplenomegaly, no masses. EXTREMITIES: 2+ pulses, warm, well-perfused, no edema. NEUROLOGICAL: Cranial nerves II through XII grossly intact. Normal speech, gait not observed. PSYCH: Normal mood, normal affect. SKIN: Warm, dry, normal turgor, no rashes or lesions noted. LABS Laboratory Results - last 24 hr 07/17/19 07/17/19 07/18/19 15:30 15:30 06:00 WBC 8.3 RBC 4.69 Hgb 14.2 Hct 43.6 D MCV 93.1 MCH 30.3 MCHC 32.5 RDW 14.7 Plt Count 170 D MPV 9.0 Absolute Neuts (auto) 5.7 Neutrophils % 69.0 Lymphocytes % 12.4 D Monocytes % 14.6 H Eosinophils % 3.3 Basophils % 0.7 D Nucleated RBC % PT with INR INR Sodium 136 139 Potassium 3.9 4.0 Chloride 106 107 Carbon Dioxide 25 25 Anion Gap 5 L 7 L BUN 17.0 15.0 Creatinine 0.9 0.7 Est GFR (CKD-EPI)AfAm 97.17 107.75 Est GFR (CKD-EPI)NonAf 83.84 92.97 Random Glucose 99 162 H Calcium 8.6 8.8 Total Bilirubin 0.5 AST 37 ALT 50 Alkaline Phosphatase 77 Total Protein 6.7 Albumin 3.7 Influenza A (Rapid) Influenza B (Rapid) 07/18/19 07/18/19 07/18/19 06:00 07:50 11:50 WBC 7.9 RBC 4.49 Hgb 13.9 Hct 41.4 MCV 92.2 MCH 30.9 MCHC 33.5 RDW 15.1 Plt Count 172 MPV 9.4 Absolute Neuts (auto) 7.2 Neutrophils % 90.9 H Lymphocytes % 5.5 L Monocytes % 3.4 L Eosinophils % 0.0 Basophils % 0.2 Nucleated RBC % 0 PT with INR 30.9 H INR 2.82 H Sodium Potassium Chloride Carbon Dioxide Anion Gap BUN Creatinine Est GFR (CKD-EPI)AfAm Est GFR (CKD-EPI)NonAf Random Glucose Calcium Total Bilirubin AST ALT Alkaline Phosphatase Total Protein Albumin Influenza A (Rapid) Negative Influenza B (Rapid) Negative HOSPITAL COURSE: Date of Admission:07/17/19 Date of Discharge: 07/18/19 Minutes to complete discharge: 35 Discharge Summary Problems reviewed: Yes Reason For Visit: ACUTE BRONCHITIS/ACUTE EXACERBATION OF COPD Current Active Problems A-fib (Acute) Acute bronchitis (Acute) COPD exacerbation (Acute) HLD (hyperlipidemia) (Acute) HTN (hypertension) (Acute) Condition: Stable - Instructions Referrals: Larissa Vieyra [Primary Care Provider] - - Home Medications Comprehensive Discharge Medication List: Ambulatory Orders Albuterol Sulfate Inhaler - [Ventolin HFA Inhaler -] 1 puff IH PRN PRN 02/06/17 Aspirin [Aspirin EC] 81 mg PO HS 02/06/17 Atorvastatin Ca [Lipitor] 40 mg PO HS 02/06/17 Diltiazem HCl [Cartia Xt] 300 mg PO HS 02/06/17 Warfarin Sodium [Coumadin] 7.5 mg PO HS 02/06/17 Nitroglycerin [place] [Nitrolingual] 1 spray TL DAILY PRN 07/17/19 This patient is new to me today: Yes Date on this admission: 07/18/19 Emergency Visit: Yes ED Registration Date: 07/17/19 Care time: The patient presented to the Emergency Department on the above date and was hospitalized for further evaluation of their emergent condition. Critical Care patient: No - Discharge Referral Referred to [facility] Med P.C.: No
--- NOTE | 2019-07-18 14:19 | PN ---
Physical Exam: SUBJECTIVE: Patient seen and examined at bedside. present. Feels much better than yesterday. No SOB, no cough, throat pain resolved. OBJECTIVE: Vital Signs Period Temp Pulse Resp BP Sys/Mane Pulse Ox Last 24 Hr 97.6 F-98.2 F 73-104 16-20 118-149/55-78 90-98 GENERAL: The patient is awake, alert, and fully oriented, in no acute distress. LUNGS: CTA HEART: Regular rate and rhythm, S1, S2 ABDOMEN: Soft, nontender, nondistended EXTREMITIES: 2+ pulses, warm, well-perfused, no edema. Multiple healed surgical scars on legs NEUROLOGICAL: Cranial nerves II through XII grossly intact. Normal speech Laboratory Results - last 24 hr 07/17/19 07/17/19 07/18/19 15:30 15:30 06:00 WBC 8.3 RBC 4.69 Hgb 14.2 Hct 43.6 D MCV 93.1 MCH 30.3 MCHC 32.5 RDW 14.7 Plt Count 170 D MPV 9.0 Absolute Neuts (auto) 5.7 Neutrophils % 69.0 Lymphocytes % 12.4 D Monocytes % 14.6 H Eosinophils % 3.3 Basophils % 0.7 D Nucleated RBC % PT with INR INR Sodium 136 139 Potassium 3.9 4.0 Chloride 106 107 Carbon Dioxide 25 25 Anion Gap 5 L 7 L BUN 17.0 15.0 Creatinine 0.9 0.7 Est GFR (CKD-EPI)AfAm 97.17 107.75 Est GFR (CKD-EPI)NonAf 83.84 92.97 Random Glucose 99 162 H Calcium 8.6 8.8 Total Bilirubin 0.5 AST 37 ALT 50 Alkaline Phosphatase 77 Total Protein 6.7 Albumin 3.7 Influenza A (Rapid) Influenza B (Rapid) 07/18/19 07/18/19 07/18/19 06:00 07:50 11:50 WBC 7.9 RBC 4.49 Hgb 13.9 Hct 41.4 MCV 92.2 MCH 30.9 MCHC 33.5 RDW 15.1 Plt Count 172 MPV 9.4 Absolute Neuts (auto) 7.2 Neutrophils % 90.9 H Lymphocytes % 5.5 L Monocytes % 3.4 L Eosinophils % 0.0 Basophils % 0.2 Nucleated RBC % 0 PT with INR 30.9 H INR 2.82 H Sodium Potassium Chloride Carbon Dioxide Anion Gap BUN Creatinine Est GFR (CKD-EPI)AfAm Est GFR (CKD-EPI)NonAf Random Glucose Calcium Total Bilirubin AST ALT Alkaline Phosphatase Total Protein Albumin Influenza A (Rapid) Negative Influenza B (Rapid) Negative Active Medications Generic Name Dose Route Start Last Admin Trade Name Freq PRN Reason Stop Dose Admin Albuterol/Ipratropium 1 amp 07/17/19 20:00 07/17/19 20:41 Duoneb - NEB 1 amp RQID ANTOINETTE Administration Aspirin 81 mg 07/17/19 22:00 07/17/19 22:15 Ecotrin - PO 81 mg HS ANTOINETTE Administration Atorvastatin Calcium 40 mg 07/17/19 22:00 07/17/19 22:15 Lipitor - PO 40 mg HS ANTOINETTE Administration Diltiazem HCl 120 mg/ 300 mg 07/17/19 23:45 07/17/19 23:39 Diltiazem HCl 180 mg PO 300 mg HS ANTOINETTE Administration Azithromycin 250 mg/ Dextrose 250 mls @ 250 mls/hr 07/18/19 10:00 IVPB 07/22/19 09:59 DAILY [facility] Methylprednisolone Sodium Succinate 40 mg 07/17/19 21:00 07/18/19 02:43 Solu-Medrol - IVPUSH 40 mg Q6H-IV ANTOINETTE Administration Warfarin Sodium 7.5 mg 07/18/19 18:00 Coumadin - PO DAILY@1800 [facility] ASSESSMENT/PLAN: 74 year-old male with a PMH significant for HTN, HLD, CAD, sick sinus syndrome s /p PPM, paroxysmal SVT, peripheral vascular disease s/po multiple procedures ( on anti-coagulation), carotid atherosclerosis, and COPD. Admitted for upper respiratory symptoms. Hypoxic respiratory failure likely secondary to viral syndrome Acute on chronic COPD --cough, nasal discharge, sore throat at time of admission --afebrile, no leukocytosis, CXR clear, influenza negative --desatted today to 86% on room air with flat surface ambulation --continue IV steroids, duonebs --continue azithromycin --daily pre post Hypertension --BP stable --continue diltiazem Hyperlipidemia --continue statin Coronary artery disease Peripheral vascular disease Carotid stenosis --continue ASA, Lipitor, diltiazem --continue warfarin 7.5mg daily, INR is therapeutic FEN Fluids: PO intake adequate Electrolytes: replete as indicated Nutrition: low sodium DVT prophylaxis: on warfarin, INR therapeutic 2.82 Dispo: continues to require inpatient care. Full code. Visit type - Emergency Visit Emergency Visit: Yes ED Registration Date: 07/17/19 Care time: The patient presented to the Emergency Department on the above date and was hospitalized for further evaluation of their emergent condition. - New Patient This patient is new to me today: Yes Date on this admission: 07/18/19 - Critical Care Critical Care patient: No
--- NOTE | 2019-07-18 16:58 | CON.PULM ---
Consult Consult Specialty:: PULM/CCM Referred by:: Hospitalist Reason for Consultation:: SOB - History of Present Illness Chief Complaint: SOB History of Present Illness: 74 M, COPD due to previous smoking history (quit 20 years ago/follows with Dr Chicas), HTN, Afib (on Coumadin), and S/P PPM. Admitted via the ER due to increased SOB, BLACK, productive cough, fever, chest congestion x 5 days. Several members of his family had similar symptoms and were given a Z-pack with improvement. No recent travel history. No hemoptysis or night sweats. There is no history that would be consistent with OSAS. CXR: no acute process. - History Source History Provided By: Patient Limitations to Obtaining History: No Limitations - Past Medical History Cardio/Vascular: Yes: AFIB, HTN, Hyperlipdemia Pulmonary: Yes: Bronchitis, COPD. No: Asthma, O2 Dependent, Pneumonia, Previously Intubated, Pulmonary Embolus, Pulmonary Fibrosis, Sleep Apnea - Past Surgical History Past Surgical History: Yes: Permanent Pacemaker - Alcohol/Substance Use Hx Alcohol Use: No History of Substance Use: reports: None - Smoking History Smoking history: Former smoker Have you smoked in the past 12 months: No Aproximately how many cigarettes per day: 40 If you are a former smoker, when did you quit?: 2008 - Social History ADL: Independent History of Recent Travel: No Home Medications - Allergies Allergies/Adverse Reactions: Allergies Allergy/AdvReac Type Severity Reaction Status Date / Time No Known Allergies Allergy Verified 07/17/19 14:55 - Home Medications Home Medications: Ambulatory Orders Albuterol Sulfate Inhaler - [Ventolin HFA Inhaler -] 1 puff IH PRN PRN 02/06/17 Aspirin [Aspirin EC] 81 mg PO HS 02/06/17 Atorvastatin Ca [Lipitor] 40 mg PO HS 02/06/17 Diltiazem HCl [Cartia Xt] 300 mg PO HS 02/06/17 Warfarin Sodium [Coumadin] 7.5 mg PO HS 02/06/17 Nitroglycerin [place] [Nitrolingual] 1 spray TL DAILY PRN 07/17/19 Review of Systems - Review of Systems Constitutional: reports: Lethargy, Malaise. denies: Chills, Night Sweats, Unintentional Wgt. Loss Eyes: reports: No Symptoms HENT: reports: No Symptoms Neck: reports: No Symptoms Cardiovascular: reports: Shortness of Breath. denies: Chest Pain, Edema, Palpitations Respiratory: reports: Cough, SOB, SOB on Exertion, Wheezing. denies: Hemoptysis , Orthopnea, PND, Snoring Gastrointestinal: reports: No Symptoms Genitourinary: reports: No Symptoms Breasts: reports: No Symptoms Reported Musculoskeletal: reports: No Symptoms Integumentary: reports: No Symptoms Neurological: reports: No Symptoms Endocrine: reports: No Symptoms Hematology/Lymphatic: reports: No Symptoms Psychiatric: reports: No Symptoms Physical Exam Vital Sings: Vital Signs Temperature 98.3 F 07/18/19 14:00 Pulse Rate 78 07/18/19 14:00 Respiratory Rate 18 07/18/19 14:00 Blood Pressure 118/60 07/18/19 14:00 O2 Sat by Pulse Oximetry (%) 94 L 07/18/19 14:00 Constitutional: Yes: No Distress, Calm, Thin Eyes: Yes: Conjunctiva Clear, EOM Intact HENT: Yes: Atraumatic, Normocephalic Neck: Yes: Supple, Trachea Midline Cardiovascular: Yes: Pulse Irregular Respiratory: Yes: Cough, Diminished, On Nasal O2, Rhonchi, SOB, SOB on Exertion , Tachypnea, Wheezes. No: Rales, Stridor ...Inspection: Yes: WNL ...Clubbing: No Gastrointestinal: Yes: Normal Bowel Sounds, Soft Renal/: Yes: WNL Musculoskeletal: Yes: WNL Extremities: Yes: WNL Edema: No Peripheral Pulses WNL: Yes Integumentary: Yes: WNL Neurological: Yes: WNL, Alert, Oriented ...Motor Strength: WNL Psychiatric: Yes: WNL, Alert, Oriented Labs: CBC, BMP 07/18/19 07:50 07/18/19 06:00 Imaging - Results Chest X-ray: Report Reviewed, Image Reviewed Problem List - Problems (1) Dyspnea Code(s): R06.00 - DYSPNEA, UNSPECIFIED (2) A-fib Code(s): I48.91 - UNSPECIFIED ATRIAL FIBRILLATION (3) Acute bronchitis Code(s): J20.9 - ACUTE BRONCHITIS, UNSPECIFIED Qualifiers: Bronchitis organism: unspecified organism Qualified Code(s): J20.9 - Acute bronchitis, unspecified (4) COPD exacerbation Code(s): J44.1 - CHRONIC OBSTRUCTIVE PULMONARY DISEASE W (ACUTE) EXACERBATION (5) HLD (hyperlipidemia) Code(s): E78.5 - HYPERLIPIDEMIA, UNSPECIFIED (6) HTN (hypertension) Code(s): I10 - ESSENTIAL (PRIMARY) HYPERTENSION Assessment/Plan IV Medrol with transition to Prednisone once clinically improved BD TX sanding and PRN (Patient takes Anoro at home and should continue on discharge) Supplemental O2 as needed and should have Pre and Post check prior to going home to assess for home O2 need AC No smoking was discussed Noted Zithromax Patient to follow with his outpatient Senior Behavioral Scientist after discharge Thank you. Dr Ferrer
[2019-07-18] MEDS ORDERED: ALBUTEROL SO4 0.083% IH SOL 2.5 MG/3 ML VIAL.NEB. NEB PRN (17:01)
[2019-07-18] MEDS ORDERED: WARFARIN NA 7.5 MG TABLET (FP) PO SCH (18:00)
[2019-07-18] MEDS: ASPIRIN COATED 81 MG TABLET.EC PO SCH (21:38)
[2019-07-18] MEDS: DILTIAZEM CD 120 MG, DILTIAZEM CD 180 MG PO SCH (21:38)
[2019-07-18] MEDS: ATORVASTATIN CA 40 MG TABLET (FP) PO SCH (21:38)
[2019-07-19 08:17] LABS: PROTHROMBIN TIME (PATIENT) 50.4 SEC (10.2-13.0)
[2019-07-19 08:30] LABS: INR 4.64 (0.82-1.09)
[2019-07-19] MEDS: ALBUTEROL SO4 2.5/IPRATROPIUM 0.5 INH SOL 3 ML VIAL.NEB. NEB SCH ×3 (09:00→19:26)
[2019-07-19] MEDS ORDERED: PT OWN MED DRAWER 7, Y5N ONE (10:32)
[2019-07-19] MEDS: methylPREDNISolone NA SUCC 40 MG/1 ML VIAL IVPUSH SCH ×2 (10:58→21:11)
[2019-07-19] MEDS: AZITHROMYCIN IVPB 250 MG in DEXTROSE 5%-WATER - 250 ML IVPB SCH (10:58)
--- NOTE | 2019-07-19 13:30 | PN ---
Physical Exam: SUBJECTIVE: Patient seen and examined at bedside. Continues to improve, breathing is at baseline. OBJECTIVE: Vital Signs Period Temp Pulse Resp BP Sys/Mane Pulse Ox Last 24 Hr 97.5 F-98.3 F 65-93 17-19 114-125/47-60 89-95 GENERAL: The patient is awake, alert, and fully oriented, in no acute distress. LUNGS: CTA HEART: Regular rate and rhythm, S1, S2 ABDOMEN: Soft, nontender, nondistended EXTREMITIES: 2+ pulses, warm, well-perfused, no edema. Multiple healed surgical scars on legs NEUROLOGICAL: Cranial nerves II through XII grossly intact. Normal speech Laboratory Results - last 24 hr 07/18/19 07/18/19 07/19/19 11:50 19:49 08:09 PT with INR 50.4 H INR 4.64 H* Influenza A (Rapid) Negative Influenza B (Rapid) Negative Group A Strep Rapid Negative Active Medications Generic Name Dose Route Start Last Admin Trade Name Freq PRN Reason Stop Dose Admin Albuterol Sulfate 1 amp 07/18/19 17:01 Ventolin 0.083% Nebulizer Soln - NEB Q4H PRN SHORT OF BREATH/WHEEZING Albuterol/Ipratropium 1 amp 07/17/19 20:00 07/19/19 09:00 Duoneb - NEB 1 amp RQID ANTOINETTE Administration Aspirin 81 mg 07/17/19 22:00 07/18/19 21:38 Ecotrin - PO 81 mg HS ANTOINETTE Administration Atorvastatin Calcium 40 mg 07/17/19 22:00 07/18/19 21:38 Lipitor - PO 40 mg HS ANTOINETTE Administration Diltiazem HCl 120 mg/ 300 mg 07/17/19 23:45 07/18/19 21:38 Diltiazem HCl 180 mg PO 300 mg HS ANTOINETTE Administration Azithromycin 250 mg/ Dextrose 250 mls @ 250 mls/hr 07/18/19 10:00 07/19/19 10 :58 IVPB 07/22/19 09:59 250 mls/hr DAILY ANTOINETTE Administration Methylprednisolone Sodium Succinate 40 mg 07/18/19 22:00 07/19/19 10:58 Solu-Medrol - IVPUSH 40 mg BID ANTOINETTE Administration Warfarin Sodium 7.5 mg 07/18/19 18:00 07/18/19 17:53 Coumadin - PO 7.5 mg DAILY@1800 ANTOINETTE Administration ASSESSMENT/PLAN: 74 year-old male with a PMH significant for HTN, HLD, CAD, sick sinus syndrome s /p PPM, paroxysmal SVT, peripheral vascular disease s/po multiple procedures ( on anti-coagulation), carotid atherosclerosis, and COPD. Admitted for upper respiratory symptoms. Hypoxic respiratory failure likely secondary to viral syndrome Acute on chronic COPD --cough, nasal discharge, sore throat at time of admission --afebrile, no leukocytosis, CXR clear, influenza negative --desatted today to 89% on room air with flat surface ambulation, improved from 86% yesterday, baseline at home is 94%, not on home O2 --tapering IV steroids, continue duonebs --continue azithromycin --daily pre post, peak flows Hypertension --BP stable --continue diltiazem Hyperlipidemia --continue statin Coronary artery disease Peripheral vascular disease on anticoagulation Carotid stenosis --continue ASA, Lipitor, diltiazem --INR 4.64 today, hold warfarin FEN Fluids: PO intake adequate Electrolytes: replete as indicated Nutrition: low sodium DVT prophylaxis: INR surpratherapeutic, hold warfarin Dispo: continues to require inpatient care. Full code. Visit type - Emergency Visit Emergency Visit: Yes ED Registration Date: 07/17/19 Care time: The patient presented to the Emergency Department on the above date and was hospitalized for further evaluation of their emergent condition. - New Patient This patient is new to me today: No - Critical Care Critical Care patient: No
[2019-07-19] MEDS: DILTIAZEM CD 120 MG, DILTIAZEM CD 180 MG PO SCH (21:12)
[2019-07-19] MEDS: ASPIRIN COATED 81 MG TABLET.EC PO SCH (21:12)
[2019-07-19] MEDS: ATORVASTATIN CA 40 MG TABLET (FP) PO SCH (21:13)
[2019-07-20 06:27] VITALS: PULSE 65
[2019-07-20 06:29] VITALS: BP 123/50; TEMP 98
[2019-07-20] MEDS: ALBUTEROL SO4 2.5/IPRATROPIUM 0.5 INH SOL 3 ML VIAL.NEB. NEB SCH (08:00)
[2019-07-20 08:09] LABS: INR 4.44 (0.82-1.09); PROTHROMBIN TIME (PATIENT) 48.3 SEC (10.2-13.0)
--- NOTE | 2019-07-20 11:48 | DS ---
Physical Exam: SUBJECTIVE: Patient seen and examined OBJECTIVE: Vital Signs Period Temp Pulse Resp BP Sys/Mane Pulse Ox Last 24 Hr 97.4 F-98.0 F 64-76 16-19 105-131/46-58 67-98 PHYSICAL EXAM GENERAL: The patient is awake, alert, and fully oriented, in no acute distress. HEAD: Normal with no signs of trauma. EYES: PERRL, extraocular movements intact, sclera anicteric, conjunctiva clear. ENT: Ears normal, nares patent, oropharynx clear without exudates, moist mucous membranes. NECK: Trachea midline, full range of motion, supple. LUNGS: Breath sounds equal, clear to auscultation bilaterally, no wheezes, no crackles, no accessory muscle use. HEART: Regular rate and rhythm, S1, S2 without murmur, rub or gallop. ABDOMEN: Soft, nontender, nondistended, normoactive bowel sounds, no guarding, no rebound, no hepatosplenomegaly, no masses. EXTREMITIES: 2+ pulses, warm, well-perfused, no edema. NEUROLOGICAL: Cranial nerves II through XII grossly intact. Normal speech, gait not observed. PSYCH: Normal mood, normal affect. SKIN: Warm, dry, normal turgor, no rashes or lesions noted. LABS Laboratory Results - last 24 hr 07/20/19 06:50 PT with INR 48.3 H INR 4.44 H* HOSPITAL COURSE: Date of Admission:07/17/19 Date of Discharge: 07/20/19 Minutes to complete discharge: 35 Discharge Summary Problems reviewed: Yes Reason For Visit: ACUTE BRONCHITIS/ACUTE EXACERBATION OF COPD Current Active Problems A-fib (Acute) Acute bronchitis (Acute) COPD exacerbation (Acute) Dyspnea (Acute) HLD (hyperlipidemia) (Acute) HTN (hypertension) (Acute) Condition: Improved - Instructions Diet, Activity, Other Instructions: A prescription has been sent to your pharmacy for prednisone. Take this medication as directed and be sure to finish all the medication. Do not take coumadin for the next two days. On Saturday you must have your INR checked by your primary care provider and have your coumadin dose adjusted accordingly. Referrals: Larissa Vieyra [Primary Care Provider] - Disposition: HOME - Home Medications Comprehensive Discharge Medication List: Ambulatory Orders Albuterol Sulfate Inhaler - [Ventolin HFA Inhaler -] 1 puff IH PRN PRN 02/06/17 Aspirin [Aspirin EC] 81 mg PO HS 02/06/17 Atorvastatin Ca [Lipitor] 40 mg PO HS 02/06/17 Diltiazem HCl [Cartia Xt] 300 mg PO HS 02/06/17 Nitroglycerin [place] [Nitrolingual [place] -] 1 spray TL DAILY PRN 07/17/19 Prednisone 10 mg PO ASDIR #26 tablet 07/20/19 This patient is new to me today: No Emergency Visit: Yes ED Registration Date: 07/17/19 Care time: The patient presented to the Emergency Department on the above date and was hospitalized for further evaluation of their emergent condition. Critical Care patient: No - Discharge Referral Referred to [facility] No
== END 2019-07-20 12:34 | disposition home or self-care (01) | DRG 189 ==
LOC: FER 14:49 → FM/S 18:43
PROVIDERS: ADMIT Internal Medicine; ATTEND Nurse Practitioner Acute Care
DX: J96.91 Respiratory failure, unspecified with hypoxia (principal); J44.1 Chronic obstructive pulmonary disease with (acute) exacerbation; J44.0 Chronic obstructive pulmonary disease with (acute) lower respiratory infection; I47.1 Supraventricular tachycardia; J20.9 Acute bronchitis, unspecified; I48.91 Unspecified atrial fibrillation; I73.9 Peripheral vascular disease, unspecified; I25.10 Atherosclerotic heart disease of native coronary artery without angina pectoris; R06.00 Dyspnea, unspecified; I10 Essential (primary) hypertension; E78.5 Hyperlipidemia, unspecified; I65.29 Occlusion and stenosis of unspecified carotid artery; Z79.01 Long term (current) use of anticoagulants; Z79.82 Long term (current) use of aspirin; Z95.0 Presence of cardiac pacemaker; Z87.891 Personal history of nicotine dependence
CPT/HCPCS: 36415; 71046-TC-FY; 80048; 80053; 85025; 85610; 87040; 87070; 87186; 87205; 87804; 87880; 93005; 94640; 99285-25

== ENCOUNTER 2024-01-29 08:53 | Day surgery (SDC) | payer OTHER ==
[2024-01-23 14:36] VITALS: BMI 21.1
[2024-01-29] MEDS ORDERED: NEO/POLYMYX B SULF/DEXAMETH OPHTHALMIC 5ML BOTTLE ONE (08:56)
[2024-01-29] MEDS ORDERED: ACETYLCHOLINE 1:100 INTRA-OCUL 20 MG/2 ML KIT ONE (08:56)
[2024-01-29] MEDS ORDERED: TETRACAINE 0.5% OPHTH SOLN 2 ML BOTTLE ONE (08:56)
[2024-01-29] MEDS ORDERED: EPINEPHrine/PF 1 MG/1 ML (1:1,000) AMPULE ONE (08:56)
[2024-01-29] MEDS ORDERED: LIDOCAINE 1% P/F 10 MG/ML VIAL ONE (08:56)
[2024-01-29] MEDS ORDERED: CARBACHOL 0.01% INTRA-OCULAR 1.5 ML VIAL ONE (08:56)
[2024-01-29] MEDS ORDERED: BSS (NA/CA/MG/K) BALANCED SALT SOLUTION OPHTH SOLN 15 ML BOTTLE ONE (08:56)
[2024-01-29] MEDS ORDERED: MIDAZOLAM HCL 2 MG/2 ML SINGLE DOSE VIAL ONE (09:00)
[2024-01-29] MEDS: CIPROFLOXACIN 0.3% EYE DROPS 5 ML BOTTLE ONE (09:20)
[2024-01-29] MEDS: TROPICAMIDE 1% OPHTH SOLN 15 ML BOTTLE ONE (09:20)
[2024-01-29] MEDS: CYCLOPENTOLATE 2% OPHTH SOLN 2 ML BOTTLE ONE (09:20)
[2024-01-29] MEDS: PHENYLEPHRINE 2.5% OPTHALMIC DROP 2ML BOTTLE ONE (09:20)
[2024-01-29 11:28] VITALS: RESP 18; TEMP 97
[2024-01-29 11:52] VITALS: BP 150/74; PULSE 62
== END 2024-01-29 11:52 | disposition home or self-care (01) ==
LOC: FASU 08:53
PROVIDERS: ATTEND Ophthalmology
PROC: 08RJ3JZ Replacement of Right Lens with Synthetic Substitute, Percutaneous Approach (ICD-10-PCS; principal; 2024-01-29 11:05)
DX: H26.8 Other specified cataract (principal)
CPT/HCPCS: 66984; V2632